=== PATIENT | male | born 1945 | race Two or more races ===

== ENCOUNTER 2023-04-25 12:22 | Emergency (ER) | payer MEDICARE, SELFPAY ==
[2023-04-25 12:35] VITALS: BP 119/78; PULSE 92; RESP 20; TEMP 36.6; O2SAT 100; BMI 63.9
[2023-04-25 12:46] LABS: Glucometer 374 mg/dL (74-106)
--- NOTE | 2023-04-25 13:15 | ED_ITS ---
HPI - General Adult General Chief complaint: Weakness Stated complaint: HIGH SUGAR LEVELS Time Seen by Provider: 04/25/23 13:15 Source: patient Mode of arrival: walk-in Limitations: no limitations History of Present Illness HPI narrative: 77 year old male presents to the ED for elevated blood sugar. He has had fatigue, sore throat, cough x1 month. His family member reports he became dizzy last night. He was evaluated at an urgent care today and told his blood sugar was >400 which brought him to the ED. Denies fever, SOB, [place], vision changes. Denies abd pain, N/V/D. States he has been taking his medication as directed. Related Data Home Medications Medication Instructions Recorded Confirmed adalimumab 40 mg/0.4 mL 40 mg subcut Q14D 04/25/23 04/25/23 subcutaneous pen kit amlodipine 5 mg tablet 5 mg PO DAILY 04/25/23 04/25/23 aspirin 81 mg tablet,delayed 81 mg PO DAILY 04/25/23 04/25/23 release (Adult Low Dose Aspirin) empagliflozin 25 mg tablet 25 mg PO DAILY 04/25/23 04/25/23 hydrochlorothiazide 12.5 mg tablet 12.5 mg PO DAILY 04/25/23 04/25/23 insulin glargine 100 unit/mL (3 20 unit subcut QPM 04/25/23 04/25/23 mL) subcutaneous pen metoprolol tartrate 25 mg tablet 25 mg PO BID 04/25/23 04/25/23 mirabegron 50 mg tablet,extended 50 mg PO DAILY 04/25/23 04/25/23 release 24 hr rosuvastatin 20 mg tablet 20 mg PO DAILY 04/25/23 04/25/23 semaglutide 1 mg/dose (4 mg/3 mL) 1 mg subcut QWEEK 04/25/23 04/25/23 subcutaneous pen injector (Ozempic) tadalafil 5 mg tablet 5 mg PO DAILY 04/25/23 04/25/23 Allergies Allergy/AdvReac Type Severity Reaction Status Date / Time No Known Drug Allergies Allergy Verified 04/25/23 12:42 Review of Systems ROS Constitutional Denies: fever or chills Eyes Denies: change in vision, blurry vision or light sensitivity Ears, nose, mouth, and throat Reports: throat pain and nasal discharge; Denies: neck pain, throat swelling or difficulty swallowing Cardiovascular Denies: chest pain Respiratory Reports: cough; Denies: shortness of breath Gastrointestinal Denies: abdominal pain, nausea, vomiting or diarrhea Genitourinary Denies: painful urination, urinary frequency or urinary urgency Musculoskeletal Denies: back pain or neck pain Integumentary/Breast Denies: rash or itching Neurological Reports: dizziness; Denies: headache, numbness in extremities, weakness in extremities or lack of coordination PFSH PFSH Social History Smoking status: Never smoker Exam Constitutional Vital Signs, click to edit/add: Last Vital Signs Temp 97.9 F 04/25/23 12:35 Pulse 82 04/25/23 16:29 Resp 20 04/25/23 16:29 BP 121/75 04/25/23 16:29 Pulse Ox 100 04/25/23 16:29 O2 Del Method Room Air 04/25/23 16:29 Common normals: no apparent distress and oriented x3 General appearance: cooperative HENMT Common normals: normocephalic Nose: external nose normal External ear: external ears normal Mouth: oral and palatal mucosa normal, lip normal and tongue normal Throat: uvula midline and posterior oropharynx abnormal erythema; no edema and no exudates Eye Common normals: conjunctivae normal and no scleral icterus Neck & C-Spine Common normals: supple and no meningeal signs Chest Chest: symmetrical chest wall rise Respiratory Common normals: normal respiratory effort and clear to auscultation bilaterally Effort & inspection: able to speak in complete sentences Cardio Common normals: regular rate and regular rhythm GI Common normals: soft to palpation Neuro Common normals: oriented x3 Sensorium/orientation: awake and alert Speech: speech normal Gait (neuro): normal gait Course Vital Signs Vital signs: Vital Signs Temperature 97.9 F 04/25/23 12:35 Pulse Rate 92 H 04/25/23 12:35 Respiratory Rate 20 04/25/23 12:35 Blood Pressure 119/78 04/25/23 12:35 Pulse Oximetry 100 04/25/23 12:35 Oxygen Delivery Method Room Air 04/25/23 12:35 Temperature 97.9 F 04/25/23 12:35 Pulse Rate 82 04/25/23 16:29 Respiratory Rate 20 04/25/23 16:29 Blood Pressure 121/75 04/25/23 16:29 Pulse Oximetry 100 04/25/23 16:29 Oxygen Delivery Method Room Air 04/25/23 16:29 Medical Decision Making MDM Narrative Medical decision making narrative: Initial blood sugar was 359. BUN was 34, creatinine 1.96. No previous lab results were available for comparison. Strep and mononucleosis were negative. Imaging was negative for acute findings. His blood sugar improved with IV fluids. He was feeling better. Follow up with pcp for a recheck, further evaluation and treatment. Medical Records Medical records reviewed: Yes I reviewed the patient's medical records Lab Data Lab results reviewed: Yes I reviewed the patient's lab results Labs: Lab Results 04/25/23 04/25/23 04/25/23 Range/Units 12:42 13:37 16:34 WBC 9.2 (4.0-11.0) 10^3/uL RBC 4.20 L (4.70-6.10) 10^6/uL Hgb 12.6 L (14.0-18.0) g/dL Hct 38.1 L (42.0-54.0) % MCV 90.7 (80.0-94.0) fL MCH 30.0 (25.9-34.0) pg MCHC 33.1 (29.9-35.2) g/dL RDW 12.5 (11.0-15.0) % Plt Count 382 (150-450) 10^3/uL MPV 9.1 L (9.5-13.5) fL Neut % (Auto) 66.3 (43.0-75.0) % Lymph % (Auto) 18.6 L (20.5-60.0) % Shannon % (Auto) 12.0 (1.7-12.0) % Eos % (Auto) 1.8 (0.9-7.0) % Baso % (Auto) 0.8 (0.2-2.0) % Neut # (Auto) 6.1 (1.4-6.5) 10^3/uL Lymph # (Auto) 1.7 (1.2-3.8) 10^3/uL Shannon # (Auto) 1.1 H (0.3-0.8) 10^3/uL Eos # (Auto) 0.2 (0.0-0.7) 10^3/uL Baso # (Auto) 0.1 (0.0-0.1) 10^3/uL Abs Immat Gran (auto) 0.05 H (0.00-0.03) 10^3/uL Imm/Tot Granulo (auto) 0.5 (0.0-0.5) % Sodium 126 L (136-145) mmol/L Potassium 3.8 (3.5-5.1) mmol/L Chloride 91 L (98-107) mmol/L Carbon Dioxide 27.2 (21.0-32.0) mmol/L Anion Gap 11.6 BUN 34.0 H (7.0-18.0) mg/dL Creatinine 1.96 H (0.70-1.30) mg/dL Est GFR ( Amer) 41 L (>=60) Est GFR (Non-Af Amer) 34 L (>=60) BUN/Creatinine Ratio 17.3 Glucose 359 H (74-106) mg/dL Calcium 8.6 (8.5-10.1) mg/dL Magnesium 2.1 (1.8-2.4) mg/dL Total Bilirubin 0.4 (0.2-1.0) mg/dL AST 23 (15-37) U/L ALT 32 (16-63) U/L Alkaline Phosphatase 121 H (46-116) U/L Total Protein 7.3 (6.4-8.2) g/dL Albumin 2.4 L (3.4-5.0) g/dL Globulin 4.9 g/dL Albumin/Globulin Ratio 0.5 Monoscreen Negative (NEGATIVE) Streptococcus Screen Negative POC Glucose 374 H 241 H (74-106) mg/dL Imaging Data Chest x-ray: Attestation: I have reviewed the pertinent imaging results. Radiologist's impression: ITS Impressions Chest X-Ray 04/25/23 13:25 IMPRESSION: 1. No acute cardiopulmonary disease. Electronically authenticated by: JOSH RIVERA Date: 04/25/2023 14:41 ECG Data Attestation: ?I have reviewed the pertinent ECG results. Interpretation: Measurements Intervals [place] Rate: 83 P: 65 MT: 170 QRS: 80 QRSD: 82 T: 21 QT: 356 QTc: 395 Interpretive Statements 1100 Sinus rhythm 1570 with occasional ventricular premature complexes 8102 Low QRS voltage in chest leads 9140 abnormal rhythm ECG No previous ECG available for comparison Discharge Plan Discharge Stand Alone Forms: Portal Instructions Chief Complaint: Weakness Clinical Impression: Hyperglycemia, Viral illness, Dehydration Patient Disposition: Home, Self-Care Time of Disposition Decision: 16:38 Condition: Good Mode of Transportation: Private Vehicle Prescriptions / Home Meds: No Action rosuvastatin 20 mg tablet 20 mg PO DAILY adalimumab 40 mg/0.4 mL pen injector kit 40 mg subcut Q14D Rx Instructions: start on day 29 of therapy mirabegron 50 mg tablet extended release 24 hr 50 mg PO DAILY metoprolol tartrate 25 mg tablet 25 mg PO BID amlodipine 5 mg tablet 5 mg PO DAILY tadalafil 5 mg tablet 5 mg PO DAILY Ozempic 1 mg/dose (4 mg/3 mL) pen injector 1 mg subcut QWEEK insulin glargine 100 unit/mL (3 mL) insulin pen 20 unit subcut QPM aspirin [Adult Low Dose Aspirin] 81 mg tablet,delayed release (DR/EC) 81 mg PO DAILY empagliflozin 25 mg tablet 25 mg PO DAILY hydrochlorothiazide 12.5 mg tablet 12.5 mg PO DAILY Instructions: Dehydration (ED), Viral Syndrome (ED), Diabetic Hyperglycemia (ED) Additional Instructions: Return to the ER if your condition worsens. Referrals: Physician,Non-Staff, MD [Primary Care Provider] - 1 week Discharge Date/Time: 04/25/23 16:59
--- NOTE | 2023-04-25 13:25 | XR_ITS ---
The [address] [address] Patient Name: ELLE HARDWICK JR MRN: [id number] date: 1945 Sex: M Assigned Patient Location: ER Current Patient Location: ER Accession/Order Number: [id number] Exam Date: 04/25/2023 14:15 Report Date: 04/25/2023 14:41 At the request of: GORDON KHAN Procedure: XR chest 1V EXAM: CHEST 1 VIEW HISTORY: Weakness, cough TECHNIQUE: Chest, one view. COMPARISON: None. FINDINGS: Lungs are clear. No focal consolidation, pleural effusion, or pneumothorax. Pulmonary vasculature is within normal limits. 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 Heart size is normal. XR/XR chest 1V IMPRESSION: 1. No acute cardiopulmonary disease. Electronically authenticated by: JOSH RIVERA Date: 04/25/2023 14:41
--- NOTE | 2023-04-25 13:25 | ECG_ITS ---
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
[2023-04-25 13:50] LABS: Basophils Absolute Auto 0.1 10^3/uL (0.0-0.1); Basophils Percent Auto 0.8 % (0.2-2.0); Eosinophils Absolute Auto 0.2 10^3/uL (0.0-0.7); Eosinophils Percent Auto 1.8 % (0.9-7.0); Hematocrit 38.1 % (42.0-54.0); Hemoglobin 12.6 g/dL (14.0-18.0); Immature Granulocytes Abs Auto 0.05 10^3/uL (0.00-0.03); Immature Granulocytes Pct Auto 0.5 % (0.0-0.5); Lymphocytes Absolute Auto 1.7 10^3/uL (1.2-3.8); Lymphocytes Percent Auto 18.6 % (20.5-60.0); Mean Corpuscular HGB Conc 33.1 g/dL (29.9-35.2); Mean Corpuscular Volume 90.7 fL (80.0-94.0); Mean Platelet Volume 9.1 fL (9.5-13.5); Monocytes Absolute Auto 1.1 10^3/uL (0.3-0.8); Neutrophils Absolute Auto 6.1 10^3/uL (1.4-6.5); Neutrophils Percent Auto 66.3 % (43.0-75.0); Platelet Count 382 10^3/uL (150-450); Red Cell Distribution Width 12.5 % (11.0-15.0); White Blood Count 9.2 10^3/uL (4.0-11.0)
[2023-04-25 13:59] LABS: Internal Control Within Normal Limits; Strep A Antigen Screen Negative
[2023-04-25 14:12] LABS: Alanine Aminotransferase 32 U/L (16-63); Albumin Globulin Ratio 0.5; Albumin Level 2.4 g/dL (3.4-5.0); Alkaline Phosphatase 121 U/L (46-116); Anion Gap 11.6; Aspartate Amino Transferase 23 U/L (15-37); BUN Creatinine Ratio 17.3; Bilirubin Total 0.4 mg/dL (0.2-1.0); Calcium 8.6 mg/dL (8.5-10.1); Carbon Dioxide 27.2 mmol/L (21.0-32.0); Chloride 91 mmol/L (98-107); Estimated GFR (African America 41 (>=60); Estimated GFR (Non-African Ame 34 (>=60); Globulin 4.9 g/dL; Glucose 359 mg/dL (74-106); Magnesium 2.1 mg/dL (1.8-2.4); Potassium 3.8 mmol/L (3.5-5.1); Sodium 126 mmol/L (136-145); Total Protein 7.3 g/dL (6.4-8.2)
[2023-04-25 14:32] LABS: Mono Screen NEGATIVE (NEGATIVE)
[2023-04-25] MEDS: 0.9 % SODIUM CHLORIDE 1,000 ML 1000 ML IV (14:34)
[2023-04-25 14:40] VITALS: BP 124/77; PULSE 82; RESP 18; O2SAT 100
[2023-04-25 16:29] VITALS: BP 121/75; PULSE 82; RESP 20; O2SAT 100
--- NOTE | 2023-04-25 16:35 | PC.NURSE ---
FSBS reading 241
[2023-04-25 16:36] LABS: Glucometer 241 mg/dL (74-106)
== END 2023-04-25 16:59 | disposition home or self-care (01) ==
PROVIDERS: Nurse Practitioner Family; Emergency Provider Emergency Medicine
DX: R73.9 Hyperglycemia, unspecified (principal); E86.0 Dehydration; B34.9 Viral infection, unspecified; Z79.82 Long term (current) use of aspirin; Z79.899 Other long term (current) drug therapy; Z79.4 Long term (current) use of insulin
CPT/HCPCS: 36415; 71045; 80053; 83735; 85025; 86308; 87070; 87880; 93005; 96360; 99285